=== PATIENT | female | born 1995 | race African-American/Black ===

== ENCOUNTER 2016-12-18 13:08 | Emergency (ER) | payer SELFPAY ==
[2016-12-18 13:15] VITALS: BP 112/79
[2016-12-18 13:36] LABS: BILIRUBIN,URINE NEG (NEG); CLARITY,URINE CLOUDY; COLOR,URINE YELLOW; GLUCOSE,URINE NEG (NEG)
[2016-12-18 13:37] LABS: BACTERIA,URINE 0 /HPF (0-FEW); NITRITE,URINE NEG (NEG); SQUAMOUS EPITHELIAL CELL,UR FEW /LPF; UROBILINOGEN,URINE 0.2 mg/dL (0.2 mg/dL)
--- NOTE | 2016-12-18 14:26 | RAD ---
OB ultrasound less than 14 weeks 12/18/2016 Clinical history: First trimester with left pelvic pain for 2 weeks. Technique: A real-time ultrasound examination of the gravid uterus was performed. Multiple images were obtained. Findings: A gestational sac is seen within the endometrial canal within the body/fundus of the uterus. Within this gestational sac a yolk sac and associated embryonic pole are seen. The CRL of the embryonic pole measures 2.5 cm. This corresponds to an estimated gestational age by ultrasound of 9 weeks 1 day plus or minus a standard deviation of 6 days. Embryonic cardiac activity is seen with a heart rate 169 bpm. Inferior to the gestational sac an area of subchronic hemorrhage is seen which measures 2.2 cm in greatest diameter. The uterus is otherwise within normal limits. The maternal cervix is closed. It measures 2.8 cm in length. Both ovaries are within normal limits size and echogenicity. The right ovary measures 4.4 x 2.5 x 2.2 cm in size. Left ovary measures 3.3 x 2.5 x 1.7 cm in size. No adnexal mass is seen. No free fluid is noted. Impression: Single living IUP with an estimated gestational age by ultrasound of 9 weeks 1 day plus or minus a standard deviation of 6 days. The estimated date of delivery by ultrasound is 07/22/2017.
[2016-12-18] MEDS ORDERED: IV NORMAL SALINE 1,000ML 1,000 ML IV ONE (14:30)
--- NOTE | 2016-12-18 14:52 | PHYS DOC ---
Past History Past Medical History: STD Past Surgical History: No Surgical History Smoking: Non-smoker Alcohol Use: Rarely Drug Use: None Adult General Chief Complaint Chief Complaint: ABDOMINAL PAIN HPI HPI Patient is a 21 year old F who presents with abdominal pain. Gemma states that she has been having like symptoms over the past 6-7 weeks. She has missed 2 periods during this time. Her symptoms include mild lower abdominal pain, nausea, diarrhea, and food cravings. She has had 1 previous . No other notable symptoms at this time Review of Systems Review of Systems Constitutional: Denies fever or chills [] Eyes: Denies change in visual acuity, redness, or eye pain [] HENT: Denies nasal congestion or sore throat [] Respiratory: Denies cough or shortness of breath [] Cardiovascular: No additional information not addressed in HPI [] GI: Negative except history of present illness : Denies dysuria or hematuria [] Musculoskeletal: Denies back pain or joint pain [] Integument: Denies rash or skin lesions [] Neurologic: Denies headache, focal weakness or sensory changes [] Endocrine: Denies polyuria or polydipsia [] Family History Family History Noncontributory Current Medications Current Medications Current Medications Medications (Trade) Dose Ordered Sig/Lyle Start Time Stop Time Status Last Admin Dose Admin Sodium Chloride 1,000 ml @ 1,000 mls/hr 1X ONCE 12/18/16 14:30 12/18/16 15:29 UNV Physical Exam Physical Exam Constitutional: Well developed, well nourished, no acute distress, non-toxic appearance. [] HENT: Normocephalic, atraumatic, bilateral external ears normal, oropharynx moist, no oral exudates, nose normal. [] Eyes: PERRLA, EOMI, conjunctiva normal, no discharge. [] Neck: Normal range of motion, no tenderness, supple, no stridor. [] Cardiovascular:Heart rate regular rhythm, no murmur [] Lungs & Thorax: Bilateral breath sounds clear to auscultation [] Abdomen: Bowel sounds normal, soft, no masses, no pulsatile masses. [] Mild generalized lower abdominal pain to palpation Skin: Warm, dry, no erythema, no rash. [] Back: No tenderness, no CVA tenderness. [] Extremities: No tenderness, no cyanosis, no clubbing, ROM intact, no edema. [] Neurologic: Alert and oriented X 3, normal motor function, normal sensory function, no focal deficits noted. [] Psychologic: Affect normal, judgement normal, mood normal. [] Current Patient Data Vital Signs Nursing documentation reviewed. Vital signs within normal limits Lab Results Laboratory Tests Test 12/18/16 13:10 12/18/16 13:28 Urine Collection Type Unknown Urine Color Yellow Urine Clarity Cloudy Urine pH 6.5 Urine Specific [employer] [place] 1.015 Urine Protein Neg (NEG-TRACE) Urine Glucose (UA) Neg mg/dL (NEG) Urine Ketones (Stick) Neg mg/dL (NEG) Urine Blood Neg (NEG) Urine Nitrite Neg (NEG) Urine Bilirubin Neg (NEG) Urine Urobilinogen Dipstick 0.2 mg/dL (0.2 mg/dL) Urine Leukocyte Esterase Trace (NEG) Urine RBC 1-2 /HPF (0-2) Urine WBC 5-10 /HPF (0-4) Urine Squamous Epithelial Cells Few /LPF Urine Bacteria 0 /HPF (0-FEW) Urine Mucus Slight /LPF POC Urine HCG, Qualitative hcg positive (Negative) EKG EKG [] Radiology/Procedures Radiology/Procedures [] Impressions: UA is contaminated. Patient has no dysuria, no frequency, no urgency Course & Med Decision Making Course & Med Decision Making Pertinent Labs and Imaging studies reviewed. (See chart for details) [] Dragon Disclaimer Dragon Disclaimer This chart was dictated in whole or in part using Voice Recognition software in a busy, high-work load, and often noisy Emergency Department environment. It may contain unintended and wholly unrecognized errors or omissions. Departure Departure: Impression: Primary Impression: Disposition: 01 HOME, SELF-CARE Condition: STABLE Patient Instructions: ABCs of Additional Instructions: Gemma was seen in the emergency room for abdominal pain. No emergency medical conditions were found on history or physical exam. She was found to have a at 9 weeks 1 day. She was advised to follow up with [facility] as soon as possible for further management. Dr. Khan [id number], [place] [address] Problem Qualifiers Primary Impression: Weeks of gestation: 9 weeks Qualified Codes: Z3A.09 - 9 weeks gestation of SUJEY BONILLA MD Dec 18, 2016 14:52
== END 2016-12-18 15:17 | disposition home or self-care (01) ==
LOC: ER 13:08
DX: O26.891 Other specified pregnancy related conditions, first trimester (principal); R10.30 Lower abdominal pain, unspecified; R11.0 Nausea; Z3A.09 9 weeks gestation of pregnancy
CPT/HCPCS: 76801; 81001; 81025; 87086; 99285-25

== ENCOUNTER 2017-01-11 20:24 | Emergency (ER) | payer OTHER ==
[~2017-01-11] VITALS: Ht 157.5 cm; Wt 73.2 kg
[2017-01-11 22:11] LABS: BASO % 0 % (0-3); EOS # 0.3 x10^3/uL (0.0-0.7); EOS % 3 % (0-3); HEMATOCRIT 32.5 % (36.0-47.0); HEMOGLOBIN 10.5 g/dL (12.0-15.5); LYMPH # 1.8 x10^3/uL (1.0-4.8); LYMPH % 16 % (24-48); MEAN CORPUSCULAR HEMOGLOBIN 28 pg (25-35); MEAN CORPUSCULAR HGB CONC 32 g/dL (31-37); MEAN CORPUSCULAR VOLUME 86 fL (79-100); MONO # 0.9 x10^3/uL (0.0-1.1); MONO % 8 % (0-9); NEUT # 8.4 x10^3uL (1.8-7.7); NEUT % 73 % (31-73); PLATELET COUNT 189 x10^3/uL (140-400); RED BLOOD COUNT 3.78 x10^6/uL (3.50-5.40); RED CELL DISTRIBUTION WIDTH 12.9 % (11.5-14.5); WHITE BLOOD COUNT 11.5 x10^3/uL (4.0-11.0)
[2017-01-11] MEDS ORDERED: IV NORMAL SALINE 1,000ML 1,000 ML ONE (22:13)
[2017-01-11] MEDS ORDERED: fentaNYL PF 100 MCG/2 ML VIAL ONE (22:13)
[2017-01-11 22:24] LABS: ALBUMIN 2.9 g/dL (3.4-5.0); ALBUMIN/GLOBULIN RATIO 0.7 (1.0-1.7); CALCIUM 8.9 mg/dL (8.5-10.1); CREATININE 0.6 mg/dL (0.6-1.0); GFR 149.9; POTASSIUM 3.7 mmol/L (3.5-5.1); TOTAL BILIRUBIN 0.2 mg/dL (0.2-1.0); TOTAL PROTEIN 6.9 g/dL (6.4-8.2)
[2017-01-11] MEDS ORDERED: IV NORMAL SALINE 1,000ML 1,000 ML IV ONE (22:30)
[2017-01-11] MEDS ORDERED: fentaNYL PF 100 MCG/2 ML VIAL IV ONE (22:30)
--- NOTE | 2017-01-11 22:49 | RAD ---
Examination: Obstetric ultrasound less than 14 weeks HISTORY: History of vaginal bleeding, passing clots COMPARISON: None available FINDINGS: Bilateral ovaries could not be identified. There is questionable gestational sac or fluid in the region of the cervix. The endometrium appears heterogenous. IMPRESSION: 1. A gestational sac or fluid identified in the cervix concerning for failed first trimester . Comparison to prior ultrasound is recommended if available. The endometrium appears heterogenous could be secondary to decidual reaction or clots. Correlate clinically. Close interval follow-up and Serial quantitative beta-hCG levels can be performed. Electronically signed by: Brian Verdin MD (01/11/2017 10:45 PM) [facility]
[2017-01-11] MEDS ORDERED: HYDR-971 PO (23:49)
--- NOTE | 2017-01-11 23:49 | PHYS DOC ---
Past History Past Medical History: STD Past Surgical History: No Surgical History Smoking: Non-smoker Alcohol Use: Rarely Drug Use: None Adult General Chief Complaint Chief Complaint: VAGINAL BLEEDING HPI HPI Patient is a 21 year old female who presents with vaginal bleeding in early . Patient states she is 13 weeks by dates, . Reports today she had lower abdominal cramping pain since then shortly prior to arrival had onset of heavy vaginal bleeding with passage of clot. She did use 2 pads prior to arrival. She denies fevers or chills, nausea or vomiting, diarrhea, dysuria. Has not yet established care with an OB. She had previous first trimester ultrasound showing IUP with heart is at about 9 weeks. Review of Systems Review of Systems Constitutional: Denies fever or chills HENT: Denies nasal congestion or sore throat Respiratory: Denies cough or shortness of breath Cardiovascular: Denies chest pain or edema GI: Reports abdominal pain, denies nausea, vomiting, or diarrhea : Reports vaginal bleeding Musculoskeletal: Denies back pain or joint pain Integument: Denies rash or skin lesions Neurologic: Denies headache, focal weakness or sensory changes Current Medications Current Medications Current Medications Medications (Trade) Dose Ordered Sig/Lyle Start Time Stop Time Status Last Admin Dose Admin Fentanyl Citrate (Fentanyl 2ml Vial) 50 mcg 1X ONCE 01/11/17 22:30 01/11/17 22:34 DC 01/11/17 22:30 50 MCG Sodium Chloride 1,000 ml @ 1,000 mls/hr 1X ONCE 01/11/17 22:30 01/11/17 23:29 DC 01/11/17 22:30 1,000 MLS/HR Allergies Allergies Allergies Coded Allergies Type Severity Reaction Last Updated Verified No Known Drug Allergies 01/11/17 No Physical Exam Physical Exam Constitutional: Well developed, well nourished, no acute distress, non-toxic appearance. HENT: Normocephalic, atraumatic, bilateral external ears normal, oropharynx moist, nose normal. Eyes: PERRLA, EOMI, conjunctiva normal, no discharge. Neck: supple, no stridor. Cardiovascular: RRR, no murmurs, no edema. Lungs & Thorax: LCTAB, no wheezing, no respiratory distress. Abdomen: soft, lower abdominal tenderness bilaterally without rebound/guarding, no masses or pulsatile masses, nondistended. : normal appearing female external genitalia, normal appearing cervix with open os, large clots & dark red blood from the os, no CMT, no adnexal tenderness. Skin: Warm, dry, no erythema, no rash. Back: No CVA tenderness. Extremities: No tenderness, no edema. Neurologic: Alert and oriented X 3, no focal deficits noted. Psychologic: Affect normal, judgement normal, mood normal. Current Patient Data Lab Results Laboratory Tests Test 01/11/17 21:48 White Blood Count 11.5 x10^3/uL (4.0-11.0) H Red Blood Count 3.78 x10^6/uL (3.50-5.40) Hemoglobin 10.5 g/dL (12.0-15.5) L Hematocrit 32.5 % (36.0-47.0) L Mean Corpuscular Volume 86 fL (79-100) Mean Corpuscular Hemoglobin 28 pg (25-35) Mean Corpuscular Hemoglobin Concent 32 g/dL (31-37) Red Cell Distribution Width 12.9 % (11.5-14.5) Platelet Count 189 x10^3/uL (140-400) Neutrophils (%) (Auto) 73 % (31-73) Lymphocytes (%) (Auto) 16 % (24-48) L Monocytes (%) (Auto) 8 % (0-9) Eosinophils (%) (Auto) 3 % (0-3) Basophils (%) (Auto) 0 % (0-3) Neutrophils # (Auto) 8.4 x10^3uL (1.8-7.7) H Lymphocytes # (Auto) 1.8 x10^3/uL (1.0-4.8) Monocytes # (Auto) 0.9 x10^3/uL (0.0-1.1) Eosinophils # (Auto) 0.3 x10^3/uL (0.0-0.7) Basophils # (Auto) 0.0 x10^3/uL (0.0-0.2) Maternal Serum HCG Beta Subunit 41372 mIU/mL (0-6) H Sodium Level 140 mmol/L (136-145) Potassium Level 3.7 mmol/L (3.5-5.1) Chloride Level 107 mmol/L (98-107) Carbon Dioxide Level 26 mmol/L (21-32) Anion Gap 7 (6-14) Blood Urea Nitrogen 8 mg/dL (7-20) Creatinine 0.6 mg/dL (0.6-1.0) Estimated GFR (Cockcroft-Gault) 149.9 BUN/Creatinine Ratio 13 (6-20) Glucose Level 94 mg/dL (70-99) Calcium Level 8.9 mg/dL (8.5-10.1) Total Bilirubin 0.2 mg/dL (0.2-1.0) Aspartate Amino Transferase (AST) 12 U/L (15-37) L Alanine Aminotransferase (ALT) 17 U/L (14-59) Alkaline Phosphatase 71 U/L (46-116) Total Protein 6.9 g/dL (6.4-8.2) Albumin 2.9 g/dL (3.4-5.0) L Albumin/Globulin Ratio 0.7 (1.0-1.7) L EKG EKG [] Radiology/Procedures Radiology/Procedures PROCEDURE: OB <14 WKS W/TV Examination: Obstetric ultrasound less than 14 weeks HISTORY: History of vaginal bleeding, passing clots COMPARISON: None available FINDINGS: Bilateral ovaries could not be identified. There is questionable gestational sac or fluid in the region of the cervix. The endometrium appears heterogenous. IMPRESSION: 1. A gestational sac or fluid identified in the cervix concerning for failed first trimester . Comparison to prior ultrasound is recommended if available. The endometrium appears heterogenous could be secondary to decidual reaction or clots. Correlate clinically. Close interval follow-up and Serial quantitative beta-hCG levels can be performed. Electronically signed by: Brian Verdin MD (01/11/2017 10:45 PM) [facility] DICTATED AND SIGNED BY: BRIAN VERDIN MD DATE: 01/11/17 3274[] Course & Med Decision Making Course & Med Decision Making Pertinent Labs and Imaging studies reviewed. (See chart for details) The patient presents with vaginal bleeding trimester . Provided pain medication. Obtained labs, UA, ultrasound. Ultrasound shows incomplete . Hemoglobin 10.5 without previous value for comparison. She is Rh+. She wanted to go home. She continued to have severe pain despite becoming very drowsy from administered pain medication. She continued to pass large clots. Ultimately she was not able to leave due to severe pain. I discussed with Dr. Hernández of OB who agrees to accept for transfer to [facility]. The patient agrees with plan of care & is being transferred in stable condition. [] Dragon Disclaimer Dragon Disclaimer This chart was dictated in whole or in part using Voice Recognition software in a busy, high-work load, and often noisy Emergency Department environment. It may contain unintended and wholly unrecognized errors or omissions. Departure Departure: Impression: Primary Impression: Incomplete Additional Impression: Anemia Disposition: XFER OTHER Condition: STABLE Referrals: PCP,NO (PCP) [facility] Patient Instructions: Incomplete Miscarriage Additional Instructions: You were seen in the emergency department today for miscarriage. You are still passing some tissue. Please rest, drink fluids, take pain medication as needed. No sexual intercourse. Follow-up with Dr. Hernández in the [facility], or with another doctor of your choice, within 2 days. Call in the morning for an appointment. Come back for high fever, severe pain, heavy bleeding requiring more than 1 pad per hour, any otherwise worsening condition. Scripts Hydrocodone Bit/Acetaminophen (NORCO 5-325 TABLET) 1 Each Tablet 1-2 TAB PO Q4-6HRS Y for SEVERE PAIN, #10 TAB Prov: GURPREET CHOWDHURY MD 01/11/17 Problem Qualifiers GURPREET CHOWDHURY MD Jan 11, 2017 23:49
[2017-01-12 00:24] LABS: BILIRUBIN,URINE NEG (NEG); CLARITY,URINE CLOUDY; COLOR,URINE RED; GLUCOSE,URINE NEG (NEG)
[2017-01-12 00:25] LABS: BACTERIA,URINE FEW /HPF (0-FEW); NITRITE,URINE NEG (NEG); RBC,URINE TNTC /HPF (0-2); SQUAMOUS EPITHELIAL CELL,UR FEW /LPF; UROBILINOGEN,URINE 1 mg/dL (0.2 mg/dL); WBC,URINE OCC /HPF (0-4)
[2017-01-12] MEDS ORDERED: fentaNYL PF 100 MCG/2 ML VIAL IV ONE (00:30)
[2017-01-12] MEDS ORDERED: IV NORMAL SALINE 1,000ML 1,000 ML IV ONE (01:00)
[2017-01-12] MEDS ORDERED: MORPHINE SULFATE 4 MG/ML DISP.SYRIN. IV ONE (01:00)
[2017-01-12] MEDS ORDERED: KETOROLAC 30 MG/ML VIAL. ONE (01:40)
[2017-01-12] MEDS ORDERED: MORPHINE SULFATE 2 MG/ML DISP.SYRIN. ONE (01:56)
[2017-01-12] MEDS ORDERED: MORPHINE SULFATE 2 MG/ML DISP.SYRIN. IV/SQ PRN (02:00)
[2017-01-12 02:25] VITALS: BP 95/58
== END 2017-01-12 02:50 | disposition short-term general hospital (02) ==
LOC: ER 20:24
DX: O03.4 Incomplete spontaneous abortion without complication (principal); O99.011 Anemia complicating pregnancy, first trimester; Z3A.13 13 weeks gestation of pregnancy
CPT/HCPCS: 36415; 76801; 76817; 80053; 81001; 84702; 85025; 86850; 86900; 86901; 96361; 96374; 96375; 96376; 99285; J2270; J3010; J7030

== ENCOUNTER 2017-05-09 21:43 | Emergency (ER) | payer SELFPAY ==
[~2017-05-09] VITALS: Ht 157.5 cm; Wt 73.2 kg
[~2017-05-09 21:43] MED LIST: HYDR-971 PO
[2017-05-09 21:52] VITALS: BP 105/58
[2017-05-09] MEDS ORDERED: METO10TA81 PO (22:00)
--- NOTE | 2017-05-09 22:00 | PHYS DOC ---
Past History Past Medical History: No Pertinent History Past Surgical History: Tonsillectomy Additional Past Surgical Histo: breast reduction Smoking: Non-smoker Alcohol Use: None Drug Use: None Adult General Chief Complaint Chief Complaint: TEST [facility] Patient is a pleasant 21-year-old female 011 at about 10 weeks by LMP with a positive test at home came to have another test today to verify her . She has no complaints other than mild breast tenderness and some morning nausea. She has no fevers, no abdominal pain other complaints. Review of Systems Review of Systems Constitutional: Denies fever or chills [] Eyes: Denies change in visual acuity, redness, or eye pain [] HENT: Denies nasal congestion or sore throat [] Respiratory: Denies cough or shortness of breath [] Cardiovascular: No additional information not addressed in [facility] [] GI: Some mild nausea but no abdominal pain : Denies dysuria or hematuria [] Musculoskeletal: Denies back pain or joint pain she does have some mild breast tenderness[] Integument: Denies rash or skin lesions [] Neurologic: Denies headache, focal weakness or sensory changes [] All other systems were reviewed and found to be within normal limits, except as documented in this note. Allergies Allergies Allergies Coded Allergies Type Severity Reaction Last Updated Verified No Known Drug Allergies 01/11/17 No Physical Exam Physical Exam Vital signs recorded on the chart within normal limits Constitutional: Well developed, well nourished, no acute distress, non-toxic appearance. [] Cardiovascular:Heart rate regular rhythm, no murmur [] Lungs & Thorax: Bilateral breath sounds clear to auscultation [] Neurologic: Alert and oriented X 3, normal gait[] Psychologic: Affect normal, judgement normal, mood normal. [] EKG EKG [] Radiology/Procedures Radiology/Procedures [] Course & Med Decision Making Course & Med Decision Making Pertinent Labs and Imaging studies reviewed. (See chart for details) [][id number] urine test is positive for being . Patient has no other complaints of follow up with her primary care doctor to get in for care. discharge: I've spoken with the patient and/or caregivers. I've explained the patient's condition, diagnosis and treatment plan based on information available to me at this time. I've answered the patient's and/or caregivers questions and addressed any concerns. The patient and/or caregivers have a good understanding the patient's diagnosis, condition and treatment plan as can be expected at this point. Vital signs have been stabilized. The patient's condition is stable for discharge from the emergency department. The patient will pursue further outpatient evaluation with her primary care provider or other designated consulting physician as outlined in the discharge instructions. Patient and/or caregivers are agreeable to this plan of care and follow-up instructions have been explained in detail. The patient and/or caregivers have received these instructions in written format and expressed understanding of these discharge instructions. The patient and her caregivers are aware that if any significant change in condition or worsening of symptoms should prompt him to immediately return to this of the closest emergency department. If an emergent department is not readily available I would encourage him to call 911. Dragon Disclaimer Dragon Disclaimer This electronic medical record was generated, in whole or in part, using a voice recognition dictation system. Departure Departure: Impression: Primary Impression: Disposition: HOME, SELF-CARE Condition: STABLE Referrals: PCP,NO (PCP) Patient Instructions: ABCs of , Additional Instructions: discharge: I've spoken with the patient and/or caregivers. I've explained the patient's condition, diagnosis and treatment plan based on information available to me at this time. I've answered the patient's and/or caregivers questions and addressed any concerns. The patient and/or caregivers have a good understanding the patient's diagnosis, condition and treatment plan as can be expected at this point. Vital signs have been stabilized. The patient's condition is stable for discharge from the emergency department. The patient will pursue further outpatient evaluation with her primary care provider or other designated consulting physician as outlined in the discharge instructions. Patient and/or caregivers are agreeable to this plan of care and follow-up instructions have been explained in detail. The patient and/or caregivers have received these instructions in written format and expressed understanding of these discharge instructions. The patient and her caregivers are aware that if any significant change in condition or worsening of symptoms should prompt him to immediately return to this of the closest emergency department. If an emergent department is not readily available I would encourage him to call 911. Scripts Metoclopramide Hcl (REGLAN) 10 Mg Tablet 1 TAB PO TID, #20 TAB Prov: THAI MARCUS MD 05/09/17 THAI MARCUS MD 1, 2018 22:00
== END 2017-05-09 22:04 | disposition home or self-care (01) ==
LOC: ER 21:43
DX: O26.891 Other specified pregnancy related conditions, first trimester (principal); R11.0 Nausea; N64.89 Other specified disorders of breast; Z3A.10 10 weeks gestation of pregnancy
CPT/HCPCS: 81025; 99283

== ENCOUNTER 2017-06-10 16:27 | Emergency (ER) | payer SELFPAY ==
[~2017-06-10 16:27] MED LIST changes: +METO10TA81 PO
--- NOTE | 2017-06-10 17:08 | ED.ADGEN ---
Past History Past Medical History: No Pertinent History Past Surgical History: Tonsillectomy, Other Additional Past Surgical Histo: breast reduction Smoking: Non-smoker Alcohol Use: None Drug Use: None Adult General Chief Complaint Chief Complaint Chlamydia. HPI HPI Patient is a 21 year old female who presents with chlamydia. She [facility] and they did not have enough pills to treat her and recommended she come back on Tuesday. Instead she decided to come to our ER for treatment. Minimal vaginal discharge, no abdominal pain or vaginal bleeding. Patient has proximal he 15 weeks , , 1 prior miscarriage. OB is at Review of Systems Review of Systems Constitutional: Denies fever or chills [] Eyes: Denies change in visual acuity, redness, or eye pain [] HENT: Denies nasal congestion or sore throat [] Respiratory: Denies cough or shortness of breath [] Cardiovascular: Denies chest pain GI: Denies abdominal pain, nausea, vomiting, bloody stools or diarrhea [] : Denies dysuria or hematuria [] Musculoskeletal: Denies back pain or joint pain [] Integument: Denies rash or skin lesions [] Neurologic: Denies headache, focal weakness or sensory changes [] Endocrine: Denies polyuria or polydipsia [] Current Medications Current Medications Current Medications Medications (Trade) Dose Ordered Sig/Lyle Start Time Stop Time Status Last Admin Dose Admin Azithromycin (Zithromax) 1,000 mg 1X ONCE 06/10/17 17:00 06/10/17 17:01 UNV Ceftriaxone Sodium (Rocephin Im) 250 mg 1X ONCE 06/10/17 17:00 06/10/17 17:01 UNV Allergies Allergies Allergies Coded Allergies Type Severity Reaction Last Updated Verified No Known Drug Allergies 01/11/17 No Physical Exam Physical Exam Constitutional: Well developed, well nourished HENT: Normocephalic, atraumatic, bilateral external ears normal, oropharynx moist Eyes: PERRLA, EOMI, conjunctiva normal, no discharge. Neck: Normal range of motion, supple, no stridor. Cardiovascular:Heart rate regular with regular rhythm Lungs & Thorax: Bilateral breath sounds clear to auscultation, no wheeze, crackles or rhonchi appreciated Abdomen: Soft, nontender, gravid below the level of the umbilicus Skin: Warm, dry Back: No tenderness Extremities: No tenderness, no cyanosis, no edema. [] Neurologic: Alert and oriented X 3, normal motor function, normal sensory function, no focal deficits noted. [] Current Patient Data Vital Signs Vital Signs Date Time Temp Pulse Resp B/P (MAP) Pulse Ox O2 Delivery O2 Flow Rate FiO2 06/10/17 16:27 98.3 61 18 98 Room Air EKG EKG [] Radiology/Procedures Radiology/Procedures [] Course & Med Decision Making Course & Med Decision Making Pertinent Labs and Imaging studies reviewed. (See chart for details) Patient given IM Rocephin and by mouth azithromycin, counseled on STDs. Final Impression Final Impression chlamydia Problems: Dragon Disclaimer Dragon Disclaimer This electronic medical record was generated, in whole or in part, using a voice recognition dictation system. STACY COATS MD Jun 10, 2017 17:08
[2017-06-10 17:15] VITALS: BP 108/71
[2017-06-10] MEDS ORDERED: cefTRIAXone IM 250 MG VIAL IM ONE (17:30)
[2017-06-10] MEDS ORDERED: AZITHROMYCIN 250 MG TABLET. PO ONE (17:30)
== END 2017-06-10 17:21 | disposition home or self-care (01) ==
LOC: ER 16:27
DX: O98.312 Other infections with a predominantly sexual mode of transmission complicating pregnancy, second trimester (principal); A56.11 Chlamydial female pelvic inflammatory disease; O46.92 Antepartum hemorrhage, unspecified, second trimester; Z3A.15 15 weeks gestation of pregnancy
CPT/HCPCS: 96372; 99283; J0456; J0696

== ENCOUNTER 2019-12-04 14:16 | Emergency (ER) | payer SELFPAY ==
[~2019-12-04] VITALS: Ht 157.5 cm; Wt 81.1 kg
[~2019-12-04 14:16] MED LIST changes: +HYDR-3165 PO; -HYDR-971 PO
[2019-12-04 14:26] VITALS: BP 122/77
[2019-12-04] MEDS ORDERED: IV NORMAL SALINE 1,000ML 1,000 ML IV ONE (14:30)
[2019-12-04] MEDS ORDERED: ONDANSETRON PF 4 MG/2 ML VIAL. IVP ONE (14:30)
--- NOTE | 2019-12-04 14:34 | PHYS DOC ---
Past History Past Medical History: No Pertinent History Past Surgical History: Tonsillectomy, Other Additional Past Surgical Histo: breast reduction Smoking: Non-smoker Alcohol Use: None Drug Use: None General Adult EDM: Chief Complaint: NAUSEA/VOMITING/DIARRHEA HPI: HPI: 24-year-old female presents with nausea and vomiting for the last 1 week. The patient states that she has had vomiting or at least dry heaving every day for the last 1 week. Usually several times a day. The patient is able to keep down both liquids and solids at other times. She has generalized abdominal pain with the vomiting, but no pain in between. She does not believe she is , but admits it is possible. She has had a bowel movement daily. She has been going through a lot of stress lately as her just before these episodes started. The patient acknowledges that it could be stress related. She is a bit depressed while grieving, but is not feeling suicidal or homicidal. She is still taking care of herself and doing daily activities. She denies fever chills. Review of Systems: Review of Systems: Constitutional: Denies fever or chills Eyes: Denies change in visual acuity HENT: Denies nasal congestion or sore throat Respiratory: Denies cough or shortness of breath Cardiovascular: Denies chest pain or edema GI: nausea, vomiting. Denies abdominal pain, bloody stools or diarrhea : Denies dysuria Musculoskeletal: Denies back pain or joint pain Integument: Denies rash Neurologic: Denies headache, focal weakness or sensory changes Endocrine: Denies polyuria or polydipsia Lymphatic: Denies swollen glands Psychiatric: Denies depression or anxiety Heart Score: Risk Factors: Risk Factors: DM, Current or recent (<one month) smoker, HTN, HLP, family history of CAD, obesity. Risk Scores: Score 0 - 3: 2.5% MACE over next 6 weeks - Discharge Home Score 4 - 6: 20.3% MACE over next 6 weeks - Admit for Clinical Observation Score 7 - 10: 72.7% MACE over next 6 weeks - Early Invasive Strategies Current Medications: Current Meds: Current Medications Medications (Trade) Dose Ordered Sig/Lyle Start Time Stop Time Status Last Admin Dose Admin Ondansetron HCl (Zofran) 4 mg 1X ONCE 12/04/19 14:30 12/04/19 14:31 Sodium Chloride 1,000 ml @ 1,000 mls/hr 1X ONCE 12/04/19 14:30 12/04/19 15:29 Allergies: Allergies: Allergies Coded Allergies Type Severity Reaction Last Updated Verified No Known Drug Allergies 01/11/17 No Physical Exam: PE: Constitutional: Well developed, well nourished, no acute distress, non-toxic appearance. [] HENT: Normocephalic, atraumatic, bilateral external ears normal, oropharynx moist, no oral exudates, nose normal. [] Eyes: PERRLA, EOMI, conjunctiva normal, no discharge. [] Neck: Normal range of motion, no tenderness, supple, no stridor. [] Cardiovascular:Heart rate regular rhythm, no murmur [] Lungs & Thorax: Bilateral breath sounds clear to auscultation [] Abdomen: Bowel sounds normal, soft, no tenderness, no masses, no pulsatile masses. [] Skin: Warm, dry, no erythema, no rash. [] Back: No tenderness, no CVA tenderness. [] Extremities: No tenderness, no cyanosis, no clubbing, ROM intact, no edema. [] Neurologic: Alert and oriented X 3, normal motor function, normal sensory function, no focal deficits noted. [] Psychologic: Affect normal, judgement normal, mood normal. [] Current Patient Data: Vital Signs: Vital Signs Date Time Temp Pulse Resp B/P (MAP) Pulse Ox O2 Delivery O2 Flow Rate FiO2 12/04/19 14:26 97.8 80 14 122/77 (92) 100 Room Air EKG: EKG: [] Radiology/Procedures: Radiology/Procedures: [] Course & Med Decision Making: Course & Med Decision Making Pertinent Labs and Imaging studies reviewed. (See chart for details) The patient's labs are unremarkable. Urinalysis is negative for infection. Her urine is positive. [place] [id number]. I have advised the patient to start vitamins as soon she can. We discussed B6 and Unisom for nausea and vomiting. I will also discharge her with a prescription for Zofran. She is stable for discharge at this time. [] Dragon Disclaimer: Dragon Disclaimer: This electronic medical record was generated, in whole or in part, using a voice recognition dictation system. Departure Departure: Impression: Primary Impression: Qualified Codes: Z3A.01 - Less than 8 weeks gestation of Additional Impression: Nausea and vomiting during Disposition: 01 HOME/RESIDENCE PRIOR TO ADM Condition: STABLE Referrals: PCP,NO (PCP) Patient Instructions: - First Trimester, [id number] Scripts Ondansetron (ONDANSETRON ODT) 4 Mg Tab.rapdis 1 TAB PO PRN Q6-8HRS PRN for VOMITING, #16 TAB Prov: LATONIA STUART DO 12/04/19 Justification of Admission: Justification of Admission: Justification of Admission Dx: N/A LATONIA STUART DO Dec 04, 2019 14:34
[2019-12-04 14:51] LABS: BASO % 0 % (0-3); EOS # 0.2 x10^3/uL (0.0-0.7); EOS % 4 % (0-3); HEMATOCRIT 36.3 % (36.0-47.0); HEMOGLOBIN 11.8 g/dL (12.0-15.5); LYMPH # 1.7 x10^3/uL (1.0-4.8); LYMPH % 26 % (24-48); MEAN CORPUSCULAR HEMOGLOBIN 28 pg (25-35); MEAN CORPUSCULAR HGB CONC 32 g/dL (31-37); MEAN CORPUSCULAR VOLUME 87 fL (79-100); MONO # 0.6 x10^3/uL (0.0-1.1); MONO % 9 % (0-9); NEUT % 61 % (31-73); PLATELET COUNT 212 x10^3/uL (140-400); RED BLOOD COUNT 4.15 x10^6/uL (3.50-5.40); RED CELL DISTRIBUTION WIDTH 12.6 % (11.5-14.5); WHITE BLOOD COUNT 6.6 x10^3/uL (4.0-11.0)
[2019-12-04 14:55] LABS: CALCIUM 8.8 mg/dL (8.5-10.1); CREATININE 0.8 mg/dL (0.6-1.0); GFR 104.9; POTASSIUM 3.6 mmol/L (3.5-5.1)
[2019-12-04 14:58] LABS: BACTERIA,URINE 0 /HPF (0-FEW); BILIRUBIN,URINE NEG (NEG); CLARITY,URINE CLEAR; COLOR,URINE YELLOW; GLUCOSE,URINE NEG (NEG); NITRITE,URINE NEG (NEG); RBC,URINE OCC /HPF (0-2); SQUAMOUS EPITHELIAL CELL,UR MOD /LPF; UROBILINOGEN,URINE 0.2 mg/dL (0.2 mg/dL)
[2019-12-04 15:01] LABS: ALBUMIN 3.6 g/dL (3.4-5.0); TOTAL BILIRUBIN 0.4 mg/dL (0.2-1.0); TOTAL PROTEIN 7.2 g/dL (6.4-8.2)
[2019-12-04] MEDS ORDERED: ONDA4TAB12 PO (15:20)
== END 2019-12-04 15:49 | disposition home or self-care (01) ==
LOC: ER 14:16
DX: O21.9 Vomiting of pregnancy, unspecified (principal); Z3A.01 Less than 8 weeks gestation of pregnancy
CPT/HCPCS: 36415; 80053; 81001; 84702; 85025; 96374; 99283; J2405; J7030; 81025

== ENCOUNTER 2020-01-04 19:55 | Emergency (ER) | payer SELFPAY ==
[~2020-01-04] VITALS: Ht 157.5 cm; Wt 81.1 kg
[~2020-01-04 19:55] MED LIST changes: +ONDA4TAB12 PO
[2020-01-04] MEDS ORDERED: PREN1TAB58 PO (20:18)
[2020-01-04] MEDS ORDERED: IV NORMAL SALINE 1,000ML 1,000 ML IV ONE ×2 (20:30→21:30)
--- NOTE | 2020-01-04 20:57 | PHYS DOC ---
Past History Past Medical History: Anemia, Anxiety, Depression Past Surgical History: Tonsillectomy, Other Additional Past Surgical Histo: breast reduction; D & C and blood transfusion with miscarriage-2017 Smoking: Non-smoker Alcohol Use: Rarely Additional Alcohol Information: drinks glass of wine occasionally Drug Use: None General Adult EDM: Chief Complaint: SYNCOPE HPI: HPI: Patient is a 24-year-old female who is 10 weeks , was brought here by EMS from home due to syncopal episode. Patient denies any chest pain, no abdominal pain, no pelvic pain, no trouble breathing. Patient denies any vaginal bleeding. Patient has OB care at [facility], had pelvic ultrasound done and confirmed IUP last week. 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 Patient came home, went to her friend house. Patient said her friend how had no AC, it was very hot inside so she went outside. However when she was outside it was very hot also so she feels weak and dizzy so she went back inside the house, as she was walking into the bathroom she became dizzy and passed out. Patient's friend was walking behind her so she caught the patient so she did not fall down on the ground. Patient woke up instantly. EMS were called to take her here for evaluation. Review of Systems: Review of Systems: Constitutional: Denies fever or chills Eyes: Denies change in visual acuity HENT: Denies nasal congestion or sore throat Respiratory: Denies cough or shortness of breath Cardiovascular: Denies chest pain or edema GI: Denies abdominal pain, nausea, vomiting, bloody stools or diarrhea : Denies dysuria Musculoskeletal: Denies back pain or joint pain Integument: Denies rash Neurologic: Denies headache, focal weakness or sensory changes. Positive for dizziness and syncope. Endocrine: Denies polyuria or polydipsia Lymphatic: Denies swollen glands Psychiatric: Denies depression or anxiety Heart Score: Risk Factors: Risk Factors: DM, Current or recent (<one month) smoker, HTN, HLP, family history of CAD, obesity. Risk Scores: Score 0 - 3: 2.5% MACE over next 6 weeks - Discharge Home Score 4 - 6: 20.3% MACE over next 6 weeks - Admit for Clinical Observation Score 7 - 10: 72.7% MACE over next 6 weeks - Early Invasive Strategies Current Medications: Current Meds: Current Medications Medications (Trade) Dose Ordered Sig/Lyle Start Time Stop Time Status Last Admin Dose Admin Sodium Chloride 1,000 ml @ 1,000 mls/hr 1X ONCE 01/04/20 20:30 01/04/20 21:29 Allergies: Allergies: Allergies Coded Allergies Type Severity Reaction Last Updated Verified No Known Drug Allergies 01/04/20 No Physical Exam: PE: Constitutional: Well developed, well nourished, no acute distress, non-toxic appearance. [] HENT: Normocephalic, atraumatic, bilateral external ears normal, oropharynx moist, no oral exudates, nose normal. [] Eyes: PERRLA, EOMI, conjunctiva normal, no discharge. [] Neck: Normal range of motion, no tenderness, supple, no stridor. [] Cardiovascular:Heart rate regular rhythm, no murmur [] Lungs & Thorax: Bilateral breath sounds clear to auscultation [] Abdomen: Bowel sounds normal, soft, no tenderness, no masses, no pulsatile masses. [] Skin: Warm, dry, no erythema, no rash. [] Back: No tenderness, no CVA tenderness. [] Extremities: No tenderness, no cyanosis, no clubbing, ROM intact, no edema. [] Neurologic: Alert and oriented X 3, normal motor function, normal sensory function, no focal deficits noted. [] Psychologic: Affect normal, judgement normal, mood normal. [] Current Patient Data: Labs: Laboratory Tests Test 01/04/20 20:42 01/04/20 23:55 White Blood Count 9.2 x10^3/uL Red Blood Count 3.47 x10^6/uL Hemoglobin 9.9 g/dL Hematocrit 30.5 % Mean Corpuscular Volume 88 fL Mean Corpuscular Hemoglobin 29 pg Mean Corpuscular Hemoglobin Concent 33 g/dL Red Cell Distribution Width 12.9 % Platelet Count 193 x10^3/uL Neutrophils (%) (Auto) 71 % Lymphocytes (%) (Auto) 20 % Monocytes (%) (Auto) 7 % Eosinophils (%) (Auto) 2 % Basophils (%) (Auto) 0 % Neutrophils # (Auto) 6.5 x10^3uL Lymphocytes # (Auto) 1.8 x10^3/uL Monocytes # (Auto) 0.6 x10^3/uL Eosinophils # (Auto) 0.2 x10^3/uL Basophils # (Auto) 0.0 x10^3/uL Sodium Level 139 mmol/L Potassium Level 3.5 mmol/L Chloride Level 105 mmol/L Carbon Dioxide Level 23 mmol/L Anion Gap 11 Blood Urea Nitrogen 8 mg/dL Creatinine 0.7 mg/dL Estimated GFR (Cockcroft-Gault) 122.4 BUN/Creatinine Ratio 11 Glucose Level 82 mg/dL Calcium Level 8.5 mg/dL Magnesium Level 1.6 mg/dL Total Bilirubin 0.3 mg/dL Aspartate Amino Transf (AST/SGOT) 12 U/L Alanine Aminotransferase (ALT/SGPT) 18 U/L Alkaline Phosphatase 54 U/L Total Protein 6.5 g/dL Albumin 2.9 g/dL Albumin/Globulin Ratio 0.8 Urine Collection Type Void Urine Color Yellow Urine Clarity Clear Urine pH 7.0 Urine Specific [place] 1.025 Urine Protein Neg Urine Glucose (UA) Neg mg/dL Urine Ketones (Stick) 80 mg/dL Urine Blood Neg Urine Nitrite Neg Urine Bilirubin Neg Urine Urobilinogen Dipstick 0.2 mg/dL Urine Leukocyte Esterase Neg Urine RBC 0 /HPF Urine WBC Occ /HPF Urine Squamous Epithelial Cells Few /LPF Urine Bacteria 0 /HPF Urine Opiates Screen Neg Urine Methadone Screen Neg Urine Barbiturates Neg Urine Phencyclidine Screen Neg Urine Amphetamine/Methamphetamine Neg Urine Benzodiazepines Screen Neg Urine Cocaine Screen Neg Urine Cannabinoids Screen Pos Urine Ethyl Alcohol Neg Current Medications Medications (Trade) Dose Ordered Sig/Lyle Route PRN Reason Start Time Stop Time Status Last Admin Dose Admin Sodium Chloride 1,000 ml @ 1,000 mls/hr 1X ONCE IV 01/04/20 20:30 01/04/20 21:29 DC 01/04/20 20:30 Sodium Chloride 1,000 ml @ 1,000 mls/hr 1X ONCE IV 01/04/20 21:30 01/04/20 22:29 DC 01/04/20 21:58 Magnesium Sulfate 50 ml @ 25 mls/hr 1X ONCE IV 01/04/20 22:00 01/04/20 23:59 DC 01/04/20 22:00 Vital Signs: Vital Signs Date Time Temp Pulse Resp B/P (MAP) Pulse Ox O2 Delivery O2 Flow Rate FiO2 01/04/20 19:55 98.8 77 18 109/66 (80) 99 Room Air EKG: EKG: [] Radiology/Procedures: Radiology/Procedures: [] Course & Med Decision Making: Course & Med Decision Making Pertinent Labs and Imaging studies reviewed. (See chart for details) Patient is a 24-year-old female who was evaluated in the ER due to dizziness, syncopal episode. Patient worked about 7-hours at the [employer] today. Once he went home, she went to a friend who house was very hot, there was no AC in the house. Patient feel hot so she went outside, but it was very hot outside also so she went back into the house. She was walking into the bathroom when she become dizzy and having some headaches. Her friend was able to catch her before she fall down. It is suspected that patient experiencing heat exposure. patient is 10 weeks , she denies any abdominal pain, no pelvic pain, no vaginal bleeding or discharge. Patient was given IV fluid in ER, she feels much better. Patient was able to get up and walk around without any problem. She was found to have low magnesium level, she was given 2 g of magnesium IV bolus in ER, she feels much better. Patient was discharged in stable condition. [facility] Disclaimer: [facility] Disclaimer: This electronic medical record was generated, in whole or in part, using a voice recognition dictation system. Departure Departure: Impression: Primary Impression: Heat exposure Additional Impressions: Syncope Hypomagnesemia syndrome Disposition: HOME/RESIDENCE PRIOR TO ADM Condition: IMPROVED (FOLLOW) Referrals: PCP,NO (PCP) FOLLOW UP WITH YOUR UTILITY TELLER DOCTOR ON TUESDAY FOR REEVALUATION Patient Instructions: ABCs of , Heat Disorders, Hypomagnesemia, Syncope Additional Instructions: Thank you for visiting our Emergency Department. We appreciate you trusting us with your care. If any additional problems come up don't hesitate to return to visit us. Please follow up with your primary care provider so they can plan additional care if needed and know about the problem that you had. If symptoms worsen come back to the Emergency Department. Any concerning symptoms that start such as chest pain, shortness of air, weakness or numbness on one side of the body, running high fevers or any other concerning symptoms return to the ER. Justification of Admission: Justification of Admission: Justification of Admission Dx: N/A SUJEY YEUNG DO Jan 04, 2020 20:57
[2020-01-04 21:03] LABS: BASO % 0 % (0-3); EOS # 0.2 x10^3/uL (0.0-0.7); EOS % 2 % (0-3); HEMATOCRIT 30.5 % (36.0-47.0); HEMOGLOBIN 9.9 g/dL (12.0-15.5); LYMPH # 1.8 x10^3/uL (1.0-4.8); LYMPH % 20 % (24-48); MEAN CORPUSCULAR HEMOGLOBIN 29 pg (25-35); MEAN CORPUSCULAR HGB CONC 33 g/dL (31-37); MEAN CORPUSCULAR VOLUME 88 fL (79-100); MONO # 0.6 x10^3/uL (0.0-1.1); MONO % 7 % (0-9); NEUT # 6.5 x10^3uL (1.8-7.7); NEUT % 71 % (31-73); PLATELET COUNT 193 x10^3/uL (140-400); RED BLOOD COUNT 3.47 x10^6/uL (3.50-5.40); RED CELL DISTRIBUTION WIDTH 12.9 % (11.5-14.5); WHITE BLOOD COUNT 9.2 x10^3/uL (4.0-11.0)
[2020-01-04 21:09] LABS: CALCIUM 8.5 mg/dL (8.5-10.1); CREATININE 0.7 mg/dL (0.6-1.0); GFR 122.4; POTASSIUM 3.5 mmol/L (3.5-5.1)
[2020-01-04 21:15] LABS: ALBUMIN 2.9 g/dL (3.4-5.0); ALBUMIN/GLOBULIN RATIO 0.8 (1.0-1.7); MAGNESIUM 1.6 mg/dL (1.8-2.4); TOTAL BILIRUBIN 0.3 mg/dL (0.2-1.0); TOTAL PROTEIN 6.5 g/dL (6.4-8.2)
[2020-01-04] MEDS ORDERED: MAGNESIUM SULFATE 2GM 50 ML IV ONE (22:00)
[2020-01-04 23:50] VITALS: BP 110/68
[2020-01-05 00:36] LABS: BARBITURATES NEG (NEG); BENZODIAZEPINES NEG (NEG); CANNABINOIDS POS (NEG); COCAINE NEG (NEG); METHADONE NEG (NEG); OPIATES NEG (NEG); PHENCYCLIDINE NEG (NEG)
[2020-01-05 00:37] LABS: BACTERIA,URINE 0 /HPF (0-FEW); BILIRUBIN,URINE NEG (NEG); CLARITY,URINE CLEAR; COLOR,URINE YELLOW; GLUCOSE,URINE NEG (NEG); NITRITE,URINE NEG (NEG); RBC,URINE 0 /HPF (0-2); SQUAMOUS EPITHELIAL CELL,UR FEW /LPF; UROBILINOGEN,URINE 0.2 mg/dL (0.2 mg/dL); WBC,URINE OCC /HPF (0-4)
[2020-01-05 00:38] LABS: AMPHETAMINE/METHAMPHETAMINE NEG (NEG)
== END 2020-01-05 00:05 | disposition home or self-care (01) ==
LOC: ER 19:55
DX: O26.811 Pregnancy related exhaustion and fatigue, first trimester (principal); O99.281 Endocrine, nutritional and metabolic diseases complicating pregnancy, first trimester; R55 Syncope and collapse; E83.42 Hypomagnesemia; Z3A.10 10 weeks gestation of pregnancy
CPT/HCPCS: 36415; 80053; 80307; 81001; 83735; 85025; 96361; 96365; 96366; 99284; J3475; J7030

== ENCOUNTER 2021-02-10 04:03 | Emergency (ER) | payer MEDICAID ==
[~2021-02-10] VITALS: Ht 154.9 cm; Wt 75.6 kg
[~2021-02-10 04:03] MED LIST changes: +PREN1TAB58 PO
[2021-02-10 04:09] VITALS: BP 120/85
[2021-02-10] MEDS ORDERED: HYDR-2765 PO (04:28)
[2021-02-10] MEDS ORDERED: PENI500T PO (04:28)
[2021-02-10] MEDS ORDERED: PENICILLIN V K 250 MG TABLET. PO ONE (04:30)
[2021-02-10] MEDS ORDERED: HYDROcodone/APAP 7.5/325MG 1 TAB TABLET PO ONE (04:30)
--- NOTE | 2021-02-10 04:32 | PHYS DOC ---
Past History Past Medical History: Anemia, Anxiety, Depression Past Surgical History: Tonsillectomy, Other Additional Past Surgical Histo: breast reduction; D & C and blood transfusion with miscarriage-2017 Smoking: Non-smoker Alcohol Use: Rarely Drug Use: None Adult General Chief Complaint Chief Complaint: DENTAL PROBLEM HPI HPI Patient is a 25 year old female who presents with right upper molar tooth pain. She has had decayed teeth with multiple cavities on the right upper side and is in the process of making an appointment to see a dentist. Meanwhile, tonight she started having acute pain to the right last and second to last molar which she describes as severe. She denies any difficulty swallowing or throat pain. She has no fever and is able to move her mouth normally. Review of Systems Review of Systems Constitutional: Denies fever or chills Eyes: Denies change in visual acuity, redness, or eye pain HENT: Denies nasal congestion or sore throat Respiratory: Denies cough or shortness of breath Cardiovascular: No additional information not addressed in HPI GI: Denies abdominal pain, nausea, vomiting, bloody stools or diarrhea Musculoskeletal: Denies back pain or joint pain Integument: Denies rash or skin lesions Neurologic: Denies headache, focal weakness or sensory changes All other systems were reviewed and found to be within normal limits, except as documented in this note. Allergies Allergies Allergies Coded Allergies Type Severity Reaction Last Updated Verified No Known Drug Allergies 02/10/21 No Physical Exam Physical Exam Constitutional: Well developed, well nourished, no acute distress, non-toxic appearance. HENT: Normocephalic, atraumatic, bilateral external ears normal, oropharynx moist, no oral exudates, both left upper molar has significant cavities and tooth decay. There is sensitivity to touch to the last molar but there is no gingival edema or findings consistent with abscess. There are other multiple teeth caries. There is no generalized facial swelling. Eyes: PERRLA, EOMI, conjunctiva normal, no discharge. Neck: Normal range of motion, no tenderness, supple, no stridor. Cardiovascular:Heart rate regular rhythm, no murmur Lungs & Thorax: Bilateral breath sounds clear to auscultation Abdomen: Bowel sounds normal, soft, no tenderness, no masses, no pulsatile masses. Extremities: No tenderness, no cyanosis, no clubbing, ROM intact, no edema. Neurologic: Alert and oriented X 3, normal motor function, normal sensory function, no focal deficits noted. EKG EKG [] Radiology/Procedures Radiology/Procedures [] Heart Score C/O Chest Pain: No Risk Factors: Risk Factors: DM, Current or recent (<one month) smoker, HTN, HLP, family history of CAD, obesity. Risk Scores: Risk Factors: DM, Current or recent (<one month) smoker, HTN, HLP, family history of CAD, obesity. Course & Med Decision Making Course & Med Decision Making Pertinent Labs and Imaging studies reviewed. (See chart for details) Patient presented with acute tooth pain. She has multiple teeth that have significant decay and cavities. I have prescribed her with Pen-Vee K and [place] for pain management with first dose of each medication given in the emergency department. I have instructed her that the proper treatment for her tooth problem is to follow-up with dentist and get definitive care. She understands and will follow up accordingly. Dragon Disclaimer Dragon Disclaimer This electronic medical record was generated, in whole or in part, using a voice recognition dictation system. Departure Departure: Impression: Primary Impression: Tooth ache Disposition: HOME / SELF CARE / HOMELESS Condition: IMPROVED Referrals: PCP,NO (PCP) You should follow-up with dentist as soon as possible to get proper treatment for your multiple teeth problems. Meanwhile, you should take the antibiotics as prescribed. Scripts Penicillin V Potassium (PENICILLIN V POTASSIUM) 500 Mg Tablet 1 TAB PO QID for tooth ache, #30 TAB Prov: AADM BLAIR MD 02/10/21 ADAM BLAIR MD Feb 10, 2021 04:31
[2021-02-10] MEDS ORDERED: HYDR-2155 PO (14:15)
== END 2021-02-10 04:43 | disposition home or self-care (01) ==
LOC: ER 04:03
DX: K02.9 Dental caries, unspecified (principal); Z86.2 Personal history of diseases of the blood and blood-forming organs and certain disorders involving the immune mechanism
CPT/HCPCS: 99283

== ENCOUNTER 2021-04-26 20:04 | Emergency (ER) | payer MEDICAID ==
[~2021-04-26] VITALS: Ht 154.9 cm; Wt 75.6 kg
[~2021-04-26 20:04] MED LIST changes: +HYDR-2155 PO; +HYDR-2765 PO; +PENI500T PO
[2021-04-26] MEDS ORDERED: HYDR-2155 PO (20:48)
[2021-04-26] MEDS ORDERED: PENI500T PO (20:48)
--- NOTE | 2021-04-26 20:50 | PHYS DOC ---
Past History Past Medical History: Anemia, Anxiety, Depression (PANFILO HANDLEY APRN) Past Surgical History: Other Additional Past Surgical Histo: breast reduction; D & C and blood transfusion with miscarriage-2017 (PAFNILO HANDLEY APRN) Smoking: Non-smoker Alcohol Use: None Drug Use: None (PANFILO HANDLEY APRN) General Adult EDM: Chief Complaint: DENTAL PROBLEM HPI: HPI: Patient is a 25-year-old female who presents with right, upper dental pain. Patient states she has a cracked tooth and started having pain on Tuesday. Patient took ibuprofen this morning with some relief but pain has returned. Patient does not have a dentist. Patient reports that she will be calling this week to get a dental appointment. No facial swelling noted. Patient reports pain is worse with drinking and eating. Denies medical history. (PANFILO HANDLEY APRN) Review of Systems: Review of Systems: ROS At least 10 ROS systems have been reviewed and are negative except as documented in the HPI. General: Negative except as outlined in HPI above. Skin: Negative except as outlined in HPI above. HEENT: Negative except as outlined in HPI above. Neck: Negative except as outlined in HPI above. Respiratory: Negative except as outlined in HPI above.. Cardiovascular: Negative except as outlined in HPI above. Abdomen: Negative except as outlined in HPI above. : Negative except as outlined in HPI above. Back/MSK: Negative except as outlined in HPI above. Neuro: Negative except as outlined in HPI above. Psych: Negative except as outlined in HPI above. (PANFILO HANDLEY APRN) Allergies: Allergies: Allergies Coded Allergies Type Severity Reaction Last Updated Verified No Known Drug Allergies 02/10/21 No (PANFILO HANDLEY APRN) Physical Exam: PE: Constitutional: Well developed, well nourished, no acute distress, non-toxic appearance. [] HENT: Normocephalic, atraumatic, bilateral external ears normal, oropharynx moist, no oral exudates, right upper molar broken tooth Eyes: PERRLA, EOMI, conjunctiva normal, no discharge. [] Neck: Normal range of motion, no tenderness, supple, no stridor. [] Cardiovascular:Heart rate regular rhythm, no murmur [] Lungs & Thorax: Bilateral breath sounds clear to auscultation [] Abdomen: Bowel sounds normal, soft, no tenderness, no masses, no pulsatile masses. [] Skin: Warm, dry, no erythema, no rash. [] Back: No tenderness, no CVA tenderness. [] Extremities: No tenderness, no cyanosis, no clubbing, ROM intact, no edema. [] Neurologic: Alert and oriented X 3, normal motor function, normal sensory function, no focal deficits noted. [] Psychologic: Affect normal, judgement normal, mood normal. [] (PANFILO HANDLEY APRN) Current Patient Data: Vital Signs: Vital Signs Date Time Temp Pulse Resp B/P (MAP) Pulse Ox O2 Delivery O2 Flow Rate FiO2 04/26/21 20:16 97.6 95 16 112/72 (85) 100 Room Air (PANFILO HANDLEY APRN) EKG: EKG: [] (PANFILO HANDLEY APRN) Radiology/Procedures: Radiology/Procedures: [] (PANFILO HANDLEY APRN) Heart Score: C/O Chest Pain: No Risk Factors: Risk Factors: DM, Current or recent (<one month) smoker, HTN, HLP, family history of CAD, obesity. Risk Scores: Score 0 - 3: 2.5% MACE over next 6 weeks - Discharge Home Score 4 - 6: 20.3% MACE over next 6 weeks - Admit for Clinical Observation Score 7 - 10: 72.7% MACE over next 6 weeks - Early Invasive Strategies (PANFILO HANDLEY APRN) Course & Med Decision Making: Course & Med Decision Making Pertinent Labs and Imaging studies reviewed. (See chart for details) [] 25-year-old female presents with right, upper, back dental pain since Tuesday. Patient has been taking ibuprofen with little relief. Patient is tearful. Patient has a follow-up appointment this week with a dentist. Patient given Motrin and hydrocodone for pain. Sent home with antibiotic. Discussed with patient importance of taking antibiotic in full and as directed. (PANFILO HANDLEY APRN) Derian Disclaimer: Derian Disclaimer: This electronic medical record was generated, in whole or in part, using a voice recognition dictation system. (PANFILO HANDLEY APRN) Departure Departure: Impression: Primary Impression: Pain, dental Disposition: HOME / SELF CARE / HOMELESS Condition: STABLE Referrals: PCP,NO (PCP) Patient Instructions: Dental Pain, [id number] Additional Instructions: You are seen in the emergency room for dental pain. You are given pain medication and symptom with an antibiotic. You were given your first dose while in the ER. Please make sure you call tomorrow make an appointment for a dentist. You can take ibuprofen for breakthrough pain. Please return to the emergency room if you have worsening symptoms or concerns. EMERGENCY DEPARTMENT GENERAL DISCHARGE INSTRUCTIONS Thank you for coming to [facility] (ED) today and trusting us with you care. We trust that you had a positivie experience in our Emergency Department. If you wish to speak to the department management, you may call the director at [phone]. YOUR FOLLOW UP INSTRUCTIONS ARE FOLLOWS: 1. Do you have a private Doctor? If you do not have a private doctor, please ask for a resource list of physicians or clinics that may be able to assist you with follow up care. 2. The Emergency Physician has interpreted your x-rays. The X-Ray specialist will also review them. If there is a change in the findings, you will be notified in 48 hours when at all possible. 3. A lab test or culture has been done, your results will be reviewed and you will be notified if you need a change in treatment. ADDITIONAL INSTRUCTIONS AND INFORMATION: 1. Your care today has been supervised by a physician who is specially trained in emergency care. Many problems require more than one evaluation for a complete diagnosis and treatment. We recommend that you schedule your follow up appointment as recommended to ensure complete treatment of you illness or injury. If you are unable to obtain follow up care and continue to have a problem, or if your condition worsens, we recommend that you return to the ED. 2. We are not able to safely determine your condition over the phone nor are we able to give sound medical advice over the phone. For these safety reasons, if you call for medical advice we will ask you to come to the ED for further evaluation. 3. If you have any questions regarding these discharge instructions please call the ED at [phone]. SAFETY INFORMATION: In the interest of safety, wellness, and injury prevention; we encourage you to wear your sealbelt, if you smoke; quite smoking, and we encourage family to use a protective helmet for bicycling and other sporting events that present an increased risk for head injury. IF YOUR SYMPTOMS WORSEN OR NEW SYMPTOMS DEVELOP, OR YOU HAVE CONCERNS ABOUT YOUR CONDITION; OR IF YOUR CONDITION WORSENS WHILE YOU ARE WAITING FOR YOUR FOLLOW UP APPOINTMENT; EITHER CONTACT YOUR PRIMARY CARE DOCTOR, THE PHYSICIAN WHOSE NAME AND NUMBER YOU WERE GIVEN, OR RETURN TO THE ED IMMEDIATELY. Scripts Hydrocodone Bit/Acetaminophen (HYDROCODONE-APAP 5-325 ) 1 Each Tablet 0.5-1 TAB PO PRN Q6HRS PRN for PAIN for 2 Days, #8 TAB 0 Refills Prov: PANFILO HANDLEY APRN 04/26/21 Penicillin V Potassium (PENICILLIN V POTASSIUM) 500 Mg Tablet 1 TAB PO TID for dental infection for 5 Days, #15 TAB Prov: PANFILO HANDLEY APRN 04/26/21 Attending Signature Attending Signature I have participated in the care of this patient and I have reviewed and agree with all pertinent clinical information above including history, exam, and recommendations. (DIANNA CORREA MD) PANFILO HANDLEY APRN Apr 26, 2021 20:50 DIANNA CORREA MD Apr 27, 2021 09:23
[2021-04-26 21:00] VITALS: BP 114/68
[2021-04-26] MEDS ORDERED: HYDROcodone/APAP 5/325MG 1 TAB TABLET PO ONE (21:30)
[2021-04-26] MEDS ORDERED: IBUPROFEN 600 MG TABLET. PO ONE (21:30)
[2021-04-26] MEDS ORDERED: PENICILLIN V K 250 MG TABLET. PO ONE (21:30)
== END 2021-04-26 21:02 | disposition home or self-care (01) ==
LOC: ER 20:04
DX: K08.89 Other specified disorders of teeth and supporting structures (principal); Z86.2 Personal history of diseases of the blood and blood-forming organs and certain disorders involving the immune mechanism
CPT/HCPCS: 99284

== ENCOUNTER 2021-07-21 08:25 | Emergency (ER) | payer MEDICAID ==
[~2021-07-21] VITALS: Ht 154.9 cm; Wt 75.6 kg
[2021-07-21 08:31] VITALS: BP 120/78
--- NOTE | 2021-07-21 09:01 | PHYS DOC ---
Past History Past Medical History: Anemia, Anxiety, Depression Past Surgical History: Other Additional Past Surgical Histo: breast reduction; D & C and blood transfusion with miscarriage-2017 Smoking: Non-smoker Alcohol Use: None Drug Use: None General Adult EDM: Chief Complaint: COUGH HPI: HPI: 25-year-old female presents with 2-day history of cough, congestion, body aches, chills. The patient is concerned she could have influenza or COVID-19. She thinks she had COVID-19 previously but was not tested. She has no recent exposure to influenza. She has no other complaints this time. Review of Systems: Review of Systems: Constitutional: Chills, body aches, fatigue Eyes: Denies change in visual acuity HENT: Denies nasal congestion Respiratory: Cough without shortness of breath Cardiovascular: Denies chest pain or edema GI: Denies abdominal pain, nausea, vomiting, bloody stools or diarrhea : Denies dysuria Musculoskeletal: Denies back pain or joint pain Integument: Denies rash Neurologic: Denies headache, focal weakness or sensory changes Endocrine: Denies polyuria or polydipsia Lymphatic: Denies swollen glands Psychiatric: Denies depression or anxiety Allergies: Allergies: Allergies Coded Allergies Type Severity Reaction Last Updated Verified No Known Drug Allergies 02/10/21 No Physical Exam: PE: Constitutional: Well developed, well nourished, obese, no acute distress, non- toxic appearance. [] HENT: Normocephalic, atraumatic, bilateral external ears normal, oropharynx moist, no oral exudates, nose congested. [] Eyes: PERRLA, EOMI, conjunctiva normal, no discharge. [] Neck: Normal range of motion, no tenderness, supple, no stridor. [] Cardiovascular: Heart rate regular rhythm, no murmur [] Lungs & Thorax: Bilateral breath sounds clear to auscultation [] Abdomen: Bowel sounds normal, soft, no tenderness, no masses, no pulsatile masses. [] Skin: Warm, dry, no erythema, no rash. [] Back: No tenderness, no CVA tenderness. [] Extremities: No tenderness, no cyanosis, no clubbing, ROM intact, no edema. [] Neurologic: Alert and oriented X 3, normal motor function, normal sensory function, no focal deficits noted. [] Psychologic: Affect normal, judgement normal, mood normal. [] Current Patient Data: Vital Signs: Vital Signs Date Time Temp Pulse Resp B/P (MAP) Pulse Ox O2 Delivery O2 Flow Rate FiO2 07/21/21 08:31 99.1 98 18 120/78 (92) 98 Room Air EKG: EKG: [] Radiology/Procedures: Radiology/Procedures: [] Heart Score: C/O Chest Pain: N/A Risk Factors: Risk Factors: DM, Current or recent (<one month) smoker, HTN, HLP, family history of CAD, obesity. Risk Scores: Score 0 - 3: 2.5% MACE over next 6 weeks - Discharge Home Score 4 - 6: 20.3% MACE over next 6 weeks - Admit for Clinical Observation Score 7 - 10: 72.7% MACE over next 6 weeks - Early Invasive Strategies Course & Med Decision Making: Course & Med Decision Making Pertinent Labs and Imaging studies reviewed. (See chart for details) The patient's chest x-ray is negative for acute findings. Her influenza and COVID testing are negative. This is likely viral URI with cough. She is stable for discharge at this time. [] Dragon Disclaimer: Dragon Disclaimer: This electronic medical record was generated, in whole or in part, using a voice recognition dictation system. Departure Departure: Impression: Primary Impression: Viral URI with cough Disposition: HOME / SELF CARE / HOMELESS Condition: STABLE Referrals: PCP,PETE (PCP) Patient Instructions: Upper Respiratory Infection, Adult, [id number] LATONIA STUART DO Jul 21, 2021 09:01
[2021-07-21] MEDS: IBUPROFEN 600 MG TABLET. PO ONE (09:06)
--- NOTE | 2021-07-21 09:15 | RAD ---
XR CHEST 1V History: Reason: cough, body aches / Spl. Instructions: / History: Comparison: None. Findings: No consolidation or pleural effusion. Normal heart size. No pneumothorax. Impression: 1. No acute cardiopulmonary process. Electronically signed by: Jose Alfredo Samaniego DO (07/21/2021 9:13 AM) [id number]
[2021-07-21 09:57] LABS: INFLUENZA A PATIENT NEGATIVE (NEGATIVE); INFLUENZA B PATIENT NEGATIVE (NEGATIVE)
== END 2021-07-21 10:25 | disposition home or self-care (01) ==
LOC: ER 08:25
DX: J06.9 Acute upper respiratory infection, unspecified (principal); Z20.822 Contact with and (suspected) exposure to COVID-19; Z86.2 Personal history of diseases of the blood and blood-forming organs and certain disorders involving the immune mechanism
CPT/HCPCS: 71045; 87428; 99284